=== PATIENT | male | born 1955 | race Caucasian/White ===

== ENCOUNTER 2017-10-09 08:41 | Emergency (ER) | payer OTHER ==
[2017-10-09 08:53] VITALS: TEMP 97.6; BMI 24.3
[2017-10-09 10:01] LABS: BASOPHIL 0.8 % (0-2.0); EOSINOPHIL 1.5 % (0-4.5); MCH 30.4 pg (25.7-33.7); MCHC 33.5 g/dl (32.0-35.9); MEAN CELL VOLUME 90.6 fl (80-96); MEAN PLT VOLUME 8.5 fl (7.5-11.1); NEUTROPHILS 64.2 % (42.8-82.8); PLATELET COUNT 194 K/MM3 (134-434); WHITE BLOOD COUNT 9.9 K/mm3 (4.0-10.0)
--- NOTE | 2017-10-09 10:03 | PDOC ---
Attending Attestation - HPI HPI: 10/09/17 11:51 The patient is a 62 year old male with a significant PMH of diabetes and past AR (1993) who presents to the emergency department with right lower back pain beginning this morning. He reports the back pain radiates to the suprapubic region and feels like a cramping sensation. The patient also reports one episode of vomiting earlier today. He reports taking Gas-X to minimal relief. He denies previous episodes of similar symptoms in the past. Allergies: NKA Past surgical history: Cardiac stent placement x2 Social history: Everyday cigarette use (10 cig./day). Occasional alcohol use. No reported drug use. PCP: Dr. Hannah Eden <Ramo Gautam - Last Filed: 10/09/17 11:55> - Resident Resident Name: Phoebe Canas - ED Attending Attestation I have performed the following: I have examined & evaluated the patient, The case was reviewed & discussed with the resident, I agree w/resident's findings & plan, Exceptions are as noted - Physicial Exam PE: GENERAL: Awake, alert, and fully oriented, in no acute distress HEAD: No signs of trauma EYES: PERRLA, EOMI, sclera anicteric, conjunctiva clear ENT: Auricles normal inspection, hearing grossly normal, nares patent, oropharynx clear without exudates. Moist mucosa NECK: Normal ROM, supple, no lymphadenopathy, JVD, or masses LUNGS: Breath sounds equal, clear to auscultation bilaterally. No wheezes, and no crackles HEART: Regular rate and rhythm, normal S1 and S2, no murmurs, rubs or gallops ABDOMEN: Soft, nontender, normoactive bowel sounds. No guarding, no rebound. No masses EXTREMITIES: Normal range of motion, no edema. No clubbing or cyanosis. No cords, erythema, or tenderness NEUROLOGICAL: Cranial nerves II through XII grossly intact. Normal speech, normal gait SKIN: Warm, Dry, normal turgor, no rashes or lesions noted. - Medical Decision Making Patient with R flank pain radiating to R lower abdomen. Associated with severe nausea. Currently in no pain. Ultrasound ruled out cholecystitis. Spiral CT with +R kidney stone. Stable for DC home on flomax. <Carolina Angeles - Last Filed: 10/09/17 16:16>
--- NOTE | 2017-10-09 10:11 | PDOC ---
History of Present Illness <Carolina Angeles - Last Filed: 10/09/17 12:48> - General History Source: Patient Exam Limitations: No Limitations - History of Present Illness Initial Comments: This is a 62 YOM with h/o NIDDM and NC (in the 90s with 2 stents placed) who presents with flank pain since having a bowel movement this morning. The patient explains he awoke and went to the bathroom, had to push harder than normal to defecate, and had a sudden onset of sharp 7/10 pain in the right mid- back (states "kidney area"). At the onset, the pain was radiating to the right lower abdomen and testicles. The pain has since migrated to the RLQ (no more right flank pain) and turned into a dull 3/10 ache radiating to the suprapubic region. The patient denies any testicular swelling, lumps/bumps, or any bloody urine/stool, black stool, burning on urination, strange or strong urine smells, diarrhea, constipation, fever, chills, chest pain, SOB, sore throat, or other symptoms lately. He drinks occasionally and has a long pack-year history of smoking cigarettes, currently 10 cigarettes/day. <MissaelPhoebe - Last Filed: 10/09/17 13:09> - General Chief Complaint: Pain, Acute Stated Complaint: PAIN/ ABD/ LT FLANK Time Seen by Provider: 10/09/17 08:56 Past History <Carolina Angeles - Last Filed: 10/09/17 12:48> - Past Medical History Cardiac Disorders: Yes (NC) COPD: No Diabetes: Yes HTN: Yes Hypercholesterolemia: Yes - Surgical History Cardiac Surgery: Yes (stents) - Suicide/Smoking/Psychosocial Hx Smoking History: Current every day smoker Have you smoked in the past 12 months: Yes Number of Cigarettes Smoked Daily: 10 Information on smoking cessation initiated: No Hx Alcohol Use: No Drug/Substance Use Hx: No Substance Use Type: None <MissaelPhoebe - Last Filed: 10/09/17 13:09> - Past Medical History Allergies/Adverse Reactions: Allergies Allergy/AdvReac Type Severity Reaction Status Date / Time No Known Allergies Allergy Verified 10/09/17 08:49 Home Medications: Ambulatory Orders Clopidogrel Bisulfate [Plavix -] 75 mg PO DAILY 10/09/17 Metoprolol Tartrate 50 mg PO DAILY 10/09/17 Lillie-3 Acid Ethyl Esters [Lovaza] 1 gm PO BID 10/09/17 Sitagliptin Phos/Metformin HCl [Janumet 50-1,000 mg Tablet] 1 each PO DAILY 11/25 Tamsulosin HCl [Flomax] 0.4 mg PO DAILY #14 cap.er.24h 10/09/17 Review of Systems - Review of Systems Constitutional: No: Chills, Fever, Unexplained wgt Loss HEENTM: No: Nose Congestion, Throat Pain Respiratory: No: Cough, Shortness of Breath Cardiac (ROS): No: Chest Pain, Palpitations ABD/GI: Yes: Nausea, Vomiting (self-induced once this morning), Other ( abdominal pain). No: Constipated, Diarrhea, Rectal Bleeding, Tarry Stools : Yes: Testicular Pain (resolved). No: Burning, Dysuria, Discharge, Frequency , Hematuria, Testicular Mass, Testicular Swelling Musculoskeletal: Yes: Back Pain. No: Neck Pain Integumentary: No: Bruising, Rash Neurological: No: Headache, Numbness, Tingling, Weakness, Dizziness Endocrine: No: Unexplained Weight Gain, Unexplained Weight Loss <CanasPhoebe - Last Filed: 10/09/17 13:09> *Physical Exam - Vital Signs Last Vital Signs Temp Pulse Resp BP Pulse Ox 97.6 F 65 20 134/78 98 10/09/17 08:50 10/09/17 08:50 10/09/17 08:50 10/09/17 08:50 10/09/17 08:50 <Carolina Angeles - Last Filed: 10/09/17 12:48> - Vital Signs Last Vital Signs Temp Pulse Resp BP Pulse Ox 97.6 F 65 20 134/78 98 10/09/17 08:50 10/09/17 08:50 10/09/17 08:50 10/09/17 08:50 10/09/17 08:50 - Physical Exam General Appearance: Yes: Nourished, Appropriately Dressed, Other (pleasant older male accompanied at bedside by significant other, answers appropriately, appears comfortable). No: Apparent Distress HEENT: positive: EOMI, Normal Voice, Hearing Grossly Normal. negative: Scleral Icterus (R), Scleral Icterus (L), Nasal Congestion Neck: positive: Trachea midline, Supple. negative: Tender, Rigid Respiratory/Chest: positive: Lungs Clear, Normal Breath Sounds. negative: Respiratory Distress, Crackles, Rhonchi, Stridor, Wheezing Cardiovascular: positive: Regular Rhythm, Regular Rate. negative: Murmur Gastrointestinal/Abdominal: positive: Tender (mild RLQ and suprapubic ttp), Soft , Increased Bowel Sounds, Other (no peritoneal signs). negative: Organomegaly, Pulsatile Mass, Protuberent, Guarding, Rebound, Hernia, Mass Male Genitalia: positive: normal genitalia. negative: discharge, testicular tenderness, testicular mass, epididymus tender, inguinal hernia Musculoskeletal: positive: Normal Inspection. negative: Decreased Range of Motion, Vertebral Tenderness Extremity: positive: Normal Capillary Refill, Normal Inspection, Normal Range of Motion. negative: Tender, Cyanosis Integumentary: positive: Normal Color, Dry, Warm. negative: Erythema, Rash, Bruising Neurologic: positive: echocardiography technologist II-XII NML intact (grossly), Fully Oriented, Alert, Normal Mood/Affect, Normal Response, Motor Strength 5/5 <Phoebe Canas - Last Filed: 10/09/17 13:09> ED Treatment Course - LABORATORY CBC & Chemistry Diagram: 10/09/17 09:42 10/09/17 09:42 - ADDITIONAL ORDERS Additional order review: Laboratory Results 10/09/17 10/09/17 10/09/17 09:42 09:42 09:42 PT with INR 11.30 INR 1.00 Sodium 138 Potassium 4.3 Chloride 103 Carbon Dioxide 26 Anion Gap 9 BUN 20 H Creatinine 0.7 Creat Clearance w eGFR > 60 Random Glucose 225 H Calcium 9.2 Total Bilirubin 0.4 AST 13 L ALT 31 Alkaline Phosphatase 84 Creatine Kinase 131 Troponin I < 0.02 Total Protein 7.3 Albumin 4.3 Lipase Urine Color Yellow Urine Appearance Cloudy Urine pH 5.0 Ur Specific Sweetser 1.020 Urine Protein 1+ H Urine Glucose (UA) Negative Urine Ketones Negative Urine Blood 3+ H Urine Nitrite Negative Urine Bilirubin Negative Urine Urobilinogen Negative Urine WBC (Auto) 3 Urine RBC (Auto) 347 Calcium Oxalate Crystal Rare Uric Acid Crystals Rare Urine Mucus Rare 10/09/17 09:41 PT with INR INR Sodium Potassium Chloride Carbon Dioxide Anion Gap BUN Creatinine Creat Clearance w eGFR Random Glucose Calcium Total Bilirubin AST ALT Alkaline Phosphatase Creatine Kinase Troponin I Total Protein Albumin Lipase 551 H Urine Color Urine Appearance Urine pH Ur Specific Sweetser Urine Protein Urine Glucose (UA) Urine Ketones Urine Blood Urine Nitrite Urine Bilirubin Urine Urobilinogen Urine WBC (Auto) Urine RBC (Auto) Calcium Oxalate Crystal Uric Acid Crystals Urine Mucus 10/09/17 09:42 RBC 4.90 MCV 90.6 MCHC 33.5 RDW 13.0 MPV 8.5 Neutrophils % 64.2 Lymphocytes % 25.1 Monocytes % 8.4 Eosinophils % 1.5 Basophils % 0.8 - RADIOLOGY Radiology Studies Ordered: Category Date Time Status SPIRAL- RENAL-STONE CT [CT] Stat CT Scan 10/09/17 11:33 Completed <Carolina Angeles - Last Filed: 10/09/17 12:48> - LABORATORY CBC & Chemistry Diagram: 10/09/17 09:42 10/09/17 09:42 <Phoebe Canas - Last Filed: 10/09/17 13:09> Medical Decision Making - Medical Decision Making 62 YOM with h/o NIDDM, NC with stents in the 90's, and smoking cigarettes p/w right flank and low abdomen pain. On exam VS wnl but patient with hyperactive bowel sounds and mild RLQ/ suprapubic ttp, no CVA ttp. DDX IBNLT renal stone, cholecystitis, appendicitis, AAA, constipation/gas/ gastroenteritis, ACS, etc. Ordered is CBCD, CMP, lipase, cardiac panel, abdominal US, EKG. 10/09/17 13:05 US without e/o cholecystitis, CBD dilatation, hydronephrosis, AAA, etc. UA with blood, no e/o UTI. Labs otherwise non-directive. Ordered spiral CT which shows right obstructing renal stone. 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 Return precautions are discussed. <Phoebe Canas - Last Filed: 10/09/17 13:09> *DC/Admit/Observation/Transfer - Discharge Dispostion Admit: No <Carolina Angeles - Last Filed: 10/09/17 12:48> - Discharge Dispostion Admit: No <Phoebe Canas - Last Filed: 10/09/17 13:09> Diagnosis at time of Disposition: Kidney stone - Discharge Dispostion Disposition: HOME Condition at time of disposition: Stable - Prescriptions Prescriptions: Tamsulosin HCl [Flomax] 0.4 mg PO DAILY #14 cap.er.24h - Referrals Referrals: Connor Eden MD [Primary Care Provider] - - Patient Instructions Printed Discharge Instructions: DI for Kidney Stones
[2017-10-09 10:23] LABS: PROTHROMBIN TIME (PATIENT) 11.3 SEC (9.98-11.88)
[2017-10-09 10:32] LABS: ALBUMIN 4.3 g/dl (3.4-5.0); ANION GAP 9 (8-16); CALCIUM 9.2 mg/dL (8.5-10.1); CO2 26 mmol/L (21-32); CREATININE 0.7 mg/dL (0.7-1.3); GLUCOSE,RANDOM 225 mg/dL (74-106); SGOT/AST 13 U/L (15-37); SGPT/ALT 31 U/L (12-78)
[2017-10-09 10:36] LABS: ALK PHOS 84 U/L (45-117); BILIRUBIN,TOTAL 0.4 mg/dL (0.2-1.0); CPK 131 IU/L (39-308); TOT PROT 7.3 g/dl (6.4-8.2); TROPONIN I < 0.02 ng/ml (0.00-0.05)
[2017-10-09 11:00] LABS: URINE APPEARANCE CLOUDY; URINE BILIRUBIN NEGATIVE (NEGATIVE); URINE BLOOD 3+ (NEGATIVE); URINE COLOR YELLOW; URINE GLUCOSE (UA) NEGATIVE (NEGATIVE); URINE KETONE NEGATIVE (NEGATIVE); URINE NITRITE NEGATIVE (NEGATIVE); URINE UROBILINOGEN NEGATIVE mg/dL (0.2-1.0)
[2017-10-09 11:23] LABS: URINE PROTEIN 1+ (NEGATIVE)
[2017-10-09 11:44] LABS: CALCIUM OXALATE CRYSTALS RARE /hpf (NONE SEEN); URIC ACID CRYSTALS RARE /hpf (NONE SEEN); URINE MUCUS RARE; URINE RBC 347 /hpf (0-3); URINE WBC 3 /hpf (3-5)
[2017-10-09 13:09] VITALS: BP 132/72; PULSE 89
[2017-10-09 20:04] LABS: URINE LEUK ESTERASE Negative (NEGATIVE)
--- NOTE | 2017-10-10 09:21 | EKG ---
Test Reason : Blood Pressure : / mmHG Vent. Rate : 064 BPM Atrial Rate : 064 BPM P-R Int : 170 ms QRS Dur : 084 ms QT Int : 398 ms P-R-T Axes : 042 -14 015 degrees QTc Int : 410 ms NORMAL SINUS RHYTHM NORMAL ECG WHEN COMPARED WITH ECG OF 29-MAY-2011 06:52, NONSPECIFIC T WAVE ABNORMALITY NOW EVIDENT IN LATERAL LEADS Confirmed by ARIELA TELLO, GAIL ([id number]) on 10/10/2017 9:21:33 AM Referred By: Confirmed By:GAIL TITUS MD
== END 2017-10-09 12:55 | disposition home or self-care (01) ==
LOC: JER 08:41
DX: N20.0 Calculus of kidney (principal); E11.9 Type 2 diabetes mellitus without complications; I25.2 Old myocardial infarction; Z95.5 Presence of coronary angioplasty implant and graft; I10 Essential (primary) hypertension; F17.210 Nicotine dependence, cigarettes, uncomplicated
CPT/HCPCS: 36415; 74176; 76700-TC; 80053; 81003; 81015; 82550; 83690; 84484; 85025; 85610; 87086; 93005; 93010; 99284-25